=== PATIENT | female | born 1960 | race Two or more races ===

== ENCOUNTER 2018-05-31 07:51 | Outpatient (CLI) | payer OTHER | END 2018-05-31 08:01 | disposition home or self-care (01) | LOC: SONOGRAMA 07:51 → MAMO-SONO 08:15 | DX: R10.84 Generalized abdominal pain (principal) ==

== ENCOUNTER 2019-02-06 14:53 | Outpatient (CLI) | payer OTHER | END 2019-02-06 15:21 | disposition home or self-care (01) | LOC: SONOGRAMA 14:53 | DX: R59.1 Generalized enlarged lymph nodes (principal) ==

== ENCOUNTER 2019-02-07 16:01 | Outpatient (CLI) | payer OTHER | END 2019-02-07 17:00 | disposition home or self-care (01) | LOC: SONOGRAMA 16:01 | DX: R59.1 Generalized enlarged lymph nodes (principal) ==

== ENCOUNTER 2019-02-09 12:06 | Outpatient (CLI) | payer OTHER | END 2019-02-09 17:00 | disposition home or self-care (01) | LOC: TOM 12:06 | DX: R59.1 Generalized enlarged lymph nodes (principal) ==

== ENCOUNTER 2020-10-01 11:45 | Outpatient (CLI) | payer OTHER | END 2020-10-01 18:00 | disposition home or self-care (01) | LOC: PPH VACUNA 11:45 | DX: Z23 Encounter for immunization (principal) ==